=== PATIENT | male | born 1960 | race Caucasian/White ===

== ENCOUNTER 2017-10-30 13:04 | Emergency (ER) | payer MEDICAID ==
[~2017-10-30] VITALS: Ht 175.3 cm; Wt 79.5 kg
[~2017-10-30 13:04] MED LIST: FLOMAX0.4 MG PO; HYDROCODON-ACE1 EAC7 PO; LEVAQUIN500 MG PO; ULTRAM50 MG PO; XANAX1 MG PO
[2017-10-30 13:16] VITALS: Ht 175.3 cm; Wt 79.5 kg
[2017-10-30] MEDS ORDERED: VOLTAREN75 MG PO (13:48)
[2017-10-30] MEDS ORDERED: VIBRAMYCIN 100100 MG PO (13:48)
[2017-10-30 14:44] VITALS: BP 140/84
== END 2017-10-30 14:31 | disposition home or self-care (01) ==
LOC: D.ER 13:04
DX: L03.116 Cellulitis of left lower limb (principal); I10 Essential (primary) hypertension; F17.200 Nicotine dependence, unspecified, uncomplicated